=== PATIENT | female | born 1975 | race Caucasian/White ===

== ENCOUNTER 2016-10-21 09:17 | Emergency (ER) | payer MEDICAID ==
[~2016-10-21] VITALS: Ht 172.7 cm; Wt 107.0 kg
[~2016-10-21 09:17] MED LIST: EXFO10TA2 PO; GLUCTAB; LABE100T2 PO; NORV10TA PO; NOVORP2 SQ
[2016-10-21 09:25] VITALS: BP 145/100; PULSE 99; RESP 18; TEMP 98.3; O2SAT 99
[2016-10-21] MEDS ORDERED: LISI-519 PO (09:39)
[2016-10-21] MEDS ORDERED: METF500T PO (09:39)
[2016-10-21] MEDS ORDERED: AMLO5TAB2 PO (09:39)
[2016-10-21] MEDS ORDERED: IBUP800T23 PO (09:44)
--- NOTE | 2016-10-21 09:54 | PD ---
HPI Chief Complaint: Musculoskeletal Complaint Time Seen by Provider: 09:38 Travel History International Travel<30 days: No Contact w/Intl Traveler<30days: No Traveled to known affect area: No History of Present Illness HPI This Is a 40 year-old woman who presents to the emergency department complaining of left hand and wrist pain. States she fell she states she fell onto her left wrist for support had a forced inversion type injury into her wrist. She denies seeing it and it seemed to be getting better but still has a lot of limitation in motion. She has pain on the ulnar side of the wrist and the ulnar side of the hand. She can make a tight fist. She has trouble pronating the hand completely. She is right handed works at a [employer] and uses her left hand a lot for work. States she was at work today and having trouble in the center to the emergency department to be checked out. History Past Medical History Narrative Medical Hypertension Diabetes Influenza Vaccination: No LMP: 10/05/16 Social History Alcohol Use: No Tobacco Use: No Allergies-Medications (Allergen,Severity, Reaction): Coded Allergies: Darvocet-N 100 (Verified Allergy, Severe, HIVES AND SWELLING, 10/21/16) Keflex (Verified Allergy, Severe, FACE AND LIPS SWELL, 10/21/16) Reported Meds & Prescriptions Reported Meds & Active Scripts Active Reported Ibuprofen 800 Mg Tab 800 Mg PO ONCE PRN Lisinopril 5 Mg Tab 5 Mg PO DAILY Amlodipine (Amlodipine Besylate) 5 Mg Tab 5 Mg PO DAILY Metformin (Metformin HCl) 500 Mg Tab 500 Mg PO DAILY With a meal Review of Systems Except as stated in HPI: all other systems reviewed are Neg Physical Exam Narrative GENERAL: Well-appearing 40 year-old woman, no acute distress. SKIN: Warm and dry. CARDIOVASCULAR: Warm and well perfused. RESPIRATORY: Normal rate and effort. MUSCULOSKELETAL: Normal gross appearance of the left hand. She has tenderness over the ulnar styloid, but a little bit on the radial styloid as well. Chest is tenderness on the ulnar side of the hand. His obvious bruising ecchymosis or deformity. She can make a inspector receiving but not very tight. She guards to rest a little bit and pronation and extension. NEUROLOGICAL: Awake and alert. No gross deficits. Data Data Last Documented VS Vital Signs Date Time Temp Pulse Resp B/P Pulse Ox O2 Delivery O2 Flow Rate FiO2 3/16/17 09:25 98.3 99 18 145/100 99 Orders Hand, Complete ([id number]) (10/21/16 ) Wrist, Complete ([id number]) (10/21/16 ) [facility] Medical Decision Making Medical Screen Exam Complete: Yes Emergency Medical Condition: Yes Interpretation(s) My review of left wrist, left hand x-ray: Negative. Specifically no evidence of scapholunate widening. No fracture. Differential Diagnosis Strain or sprain, fracture, carpal injury, other Narrative Course Medical decision making INITIAL: 40 year-old woman presents to our of left wrist pain from sort of an unusual injury with what sounds like fall onto the wrist with forced flexion. She could be at risk for ligamentous injury. We'll check x-rays of the hand and wrist. Reassess. Diagnosis Primary Impression: Left hand pain Patient Instructions: General Instructions Additional Instructions: Continue ibuprofen as needed for pain. Continue range of motion exercises. Follow-up with her primary doctor if it's not completely resolved in the next 7 days. Disposition: 01 DISCHARGE HOME Condition: Stable Todd Delgado MD Oct 21, 2016 09:54
--- NOTE | 2016-10-21 10:16 | RADHPO ---
EXAM DATE/TIME: 10/21/2016 09:48 [facility] COMPARISON: HAND LEFT COMPLETE ([id number]), October 21, 2016, 9:54. INDICATIONS : Left wrist pain after fall. MEDICAL HISTORY : None. SURGICAL HISTORY : None. ENCOUNTER: Initial ACUITY: 3 days PAIN SCORE: 2/10 LOCATION: Left middle wrist FINDINGS: There is a vertical lucency through the lateral distal radius seen only on one view, the oblique view , that extends into the lateral aspect of the radiocarpal joint concerning for a subtle nondisplaced fracture. No other possible fractures seen. The wrist is normally aligned. The carpal bones are intac t. CONCLUSION: Possible subtle nondisplaced fracture of the distal lateral radius. Axel Arreola MD on October 21, 2016 at 10:09 Board Certified Radiologist. This report was verified electronically.
--- NOTE | 2016-10-21 10:18 | RADHPO ---
EXAM DATE/TIME: 10/21/2016 09:54 [facility] COMPARISON: No previous studies available for comparison. INDICATIONS : Left hand pain after fall. MEDICAL HISTORY : None. SURGICAL HISTORY : None. ENCOUNTER: Initial ACUITY: 3 days PAIN SCORE: 4/10 LOCATION: Left medial hand FINDINGS: On a Single view, the oblique view, there is a lucency at the lateral distal radius at the radiocarpa l joint concerning for a subtle nondisplaced fracture. No other possible fracture is seen. The bones and joints are normally aligned. CONCLUSION: Possible subtle fracture of the distal lateral radius. Axel Arreola MD on October 21, 2016 at 10:15 Board Certified Radiologist. This report was verified electronically.
== END 2016-10-21 10:29 | disposition home or self-care (01) ==
LOC: PHED 09:17
DX: M79.642 Pain in left hand (principal); I10 Essential (primary) hypertension; E11.9 Type 2 diabetes mellitus without complications; X50.9XXA Other and unspecified overexertion or strenuous movements or postures, initial encounter; W18.30XA Fall on same level, unspecified, initial encounter; Y93.9 Activity, unspecified; Y92.9 Unspecified place or not applicable; Y99.9 Unspecified external cause status
CPT/HCPCS: 29125; 73110; 73130

== ENCOUNTER 2017-11-02 09:20 | Emergency (ER) | payer MEDICAID ==
[~2017-11-02] VITALS: Ht 172.7 cm; Wt 112.0 kg
[~2017-11-02 09:20] MED LIST changes: +AMLO5TAB2 PO; -EXFO10TA2 PO; -GLUCTAB; +IBUP1TAB7 PO; -LABE100T2 PO; +LISI-519 PO; +METF500T PO; -NORV10TA PO; -NOVORP2 SQ
[2017-11-02 09:24] VITALS: BP 175/109; PULSE 113; RESP 18; TEMP 98.9; O2SAT 99
--- NOTE | 2017-11-02 09:40 | PD ---
HPI . Rash Chief Complaint: Skin Problem Time Seen by Provider: 09:29 Travel History International Travel<30 days: No Contact w/Intl Traveler<30days: No Traveled to known affect area: No History of Present Illness HPI This patient presents with the chief complaint of a rash. She states started 3 days ago as tiny bumps. The bumps have gotten larger and larger over the course of the last couple of days. She has been treating them with hydrocortisone cream without relief. She describes a burning sensation which she rates 4/10. She states that she had gastroenteritis prior to the onset of the rash. She states that she was seen at an outside hospital and treated with a gastroenteritis. Later that same day, she developed a rash. Gastroenteritis has resolved. PFSH Past Medical History Cardiovascular Problems: Yes (htn; chf with ) Diabetes: Yes (type 2 ) Patient Takes Glucophage: Yes (11/02/17 0900) Diminished Hearing: No Hypertension: Yes Tetanus Vaccination: > 5 Years Influenza Vaccination: No ?: Not LMP: 10/20/17 Past Surgical History Cholecystectomy: Yes Social History Alcohol Use: No Tobacco Use: No Substance Use: No Allergies-Medications (Allergen,Severity, Reaction): Coded Allergies: acetaminophen (Unverified Allergy, Severe, HIVES AND SWELLING, 11/02/17) cephalexin (Unverified Allergy, Severe, FACE AND LIPS SWELL, 11/02/17) propoxyphene (Unverified Allergy, Severe, HIVES AND SWELLING, 11/02/17) Reported Meds & Prescriptions Reported Meds & Active Scripts Active Reported Lisinopril 5 Mg Tab 5 Mg PO DAILY Amlodipine (Amlodipine Besylate) 5 Mg Tab 5 Mg PO DAILY Metformin (Metformin HCl) 500 Mg Tab 500 Mg PO DAILY With a meal Review of Systems Except as stated in HPI: all other systems reviewed are Neg Respiratory: No: Shortness of Breath Gastrointestinal: No: Nausea, Vomiting Skin: Positive Rash, Positive Itching (burning) Physical Exam Narrative GENERAL: Awake and alert and in no acute distress. SKIN: Warm and dry. She has scattered areas on her upper extremities, right worse than left which are slightly raised and erythematous. They are irregular. She has a similar lesion on her neck. HEAD: Normocephalic/atraumatic. EYES: Pupils are equal. Extraocular movements are intact. NECK: Normal range of motion. RESPIRATORY: Nonlabored respirations. MUSCULOSKELETAL: Atraumatic. NEUROLOGICAL: Nonfocal. PSYCHIATRIC: Appropriate mood and affect. Data Data Last Documented VS Vital Signs Date Time Temp Pulse Resp B/P (MAP) Pulse Ox O2 Delivery O2 Flow Rate FiO2 11/02/17 09:24 98.9 113 18 175/109 (131) 99 Orders Orders Ed Discharge Order (11/02/17 09:36) MDM Medical Decision Making Medical Screen Exam Complete: Yes Emergency Medical Condition: Yes Differential Diagnosis The differential diagnosis of the skin rash includes but is not limited to allergic urticaria, scabies, insect bites, contact dermatitis Narrative Course This patient presents with a burning rash on both upper extremities, right worse than left. It looks like a localized allergic reaction. She will be discharged to home with instructions to take Benadryl and ibuprofen and to use cool compresses. Diagnosis Primary Impression: Allergic reaction Qualified Codes: T78.40XA - Allergy, unspecified, initial encounter Patient Instructions: General Instructions Departure Forms: Tests/Procedures Additional Instructions: Benadryl 2 every 4 hours until rash is gone. Ibuprofen 3 every 6 hours for pain and swelling. Cool compresses to area. Disposition: 01 DISCHARGE HOME Condition: Stable Monica Cedeno MD Nov 02, 2017 09:40
== END 2017-11-02 09:57 | disposition home or self-care (01) ==
LOC: PHEFT 09:20
DX: T78.40XA Allergy, unspecified, initial encounter (principal); R21 Rash and other nonspecific skin eruption; I10 Essential (primary) hypertension; E11.9 Type 2 diabetes mellitus without complications; Z79.899 Other long term (current) drug therapy; Z88.6 Allergy status to analgesic agent; Z88.8 Allergy status to other drugs, medicaments and biological substances
CPT/HCPCS: 99282